=== PATIENT | male | born 1990 | race Caucasian/White ===

== ENCOUNTER 2016-05-30 00:51 | Emergency (ER) | payer BC ==
[2016-05-30 01:05] VITALS: RESP 16; TEMP 97.5
[2016-05-30] MEDS ORDERED: METOCLOPRAMIDE 10 MG/2 ML VIAL ONE (01:42)
[2016-05-30] MEDS ORDERED: KETOROLAC 15 MG/1 ML SDV ONE (01:43)
[2016-05-30] MEDS ORDERED: KETOROLAC 15 MG/1 ML SDV IVP ONE (01:48)
[2016-05-30] MEDS ORDERED: METOCLOPRAMIDE 10 MG/2 ML VIAL IVP ONE (01:48)
--- NOTE | 2016-05-30 02:09 | EDPHY ---
H & P Stated Complaint: migraine over R eye, N/V, x 3 hrs tonight. Tylenol didn't help. Time Seen by Provider: 05/30/16 01:58 HPI/ROS: HPI The patient presents with headache which began about 3 hours ago while watching TV. It started slowly and it was in the right retro-orbital region, he describes it as throbbing. He is had about 2 episodes of vomiting. He took a dose of Tylenol without any improvement of his symptoms. He does have a history of similar headaches which he attributes to migraine. He has had to go to the emergency room previously, his last visit was about 8 months ago. He is not have any numbness or weakness of arms or legs, he does not have any changes to his vision.. REVIEW OF SYSTEMS Constitutional: No fever, no chills. Eyes: No discharge. ENT: No sore throat. Cardiovascular: No chest pain, no palpitations. Respiratory: No cough, no shortness of breath. Gastrointestinal: No abdominal pain, + vomiting. Genitourinary: No hematuria. Musculoskeletal: No back pain. Skin: No rashes. Neurological: + headache. PMHx: Migraine headache, depression Soc Hx: No tobacco use, denies drug use PHYSICAL General Appearance: Alert, no distress Eyes: Pupils equal and round no pallor or injection ENT, Mouth: Mucous membranes moist Respiratory: There are no retractions, lungs are clear to auscultation Cardiovascular: Regular rate and rhythm Gastrointestinal: Abdomen is soft and non-tender, no masses, bowel sounds normal Neurological: A&O, cranial nerves 2-12 intact, 5/5 strength in upper and lower extremities which is symmetric Skin: Warm and dry, no rashes Musculoskeletal: Neck is supple non tender Extremities: symmetrical, full range of motion Psychiatric: Patient is oriented X 3, there is no agitation Source: Patient - Personal History Current Tetanus/Diphtheria Vaccine: Unsure Current Tetanus Diphtheria and Acellular Pertussis (TDAP): Unsure - Medical/Surgical History Hx Asthma: No Hx Chronic Respiratory Disease: No Hx Diabetes: No Hx Cardiac Disease: No Hx Renal Disease: No Hx Cirrhosis: No Hx Alcoholism: No Hx HIV/AIDS: No Hx Splenectomy or Spleen Trauma: No Other PMH: migraines, depression - Social History Smoking Status: Never smoked Constitutional: Initial Vital Signs Temperature (C) 36.4 C 05/30/16 01:02 Heart Rate 69 05/30/16 01:02 Respiratory Rate 16 05/30/16 01:02 Blood Pressure 132/85 H 05/30/16 01:02 O2 Sat (%) 98 05/30/16 01:02 O2 Delivery Mode Room Air Allergies/Adverse Reactions: No Known Allergies Allergy (Unverified 05/30/16 01:02) Home Medications: Medication Instructions Recorded Lexapro 05/30/16 Medical Decision Making Differential Diagnosis: This is a 26-year-old male with history of migraine headaches who presents from home with headache typical of his usual migraine. On exam, he has no neurologic deficits. In the emergency room he was given Toradol, Benadryl, Reglan with significant improvement in his headache. He will be discharged home , I have instructed him that he can take Excedrin migraine as needed. He is in agreement with the plan. Differential diagnosis includes tension type headache, migraine headache, sinusitis. Doubt meningitis given no fever, or nuchal rigidity. Doubt subarachnoid hemorrhage given normal neurologic exam. - Data Points Medications Given: Discontinued Medications Diphenhydramine HCl (Benadryl Injection) 25 mg IVP EDNOW ONE Stop: 05/30/16 01:49 Last Admin: 05/30/16 01:50 Dose: 25 mg Ketorolac Tromethamine (Toradol) 15 mg IVP EDNOW ONE Stop: 05/30/16 01:49 Last Admin: 05/30/16 01:50 Dose: 15 mg Metoclopramide HCl (Reglan Injection) 10 mg IVP EDNOW ONE Stop: 05/30/16 01:49 Last Admin: 05/30/16 01:50 Dose: 10 mg Departure - Departure Disposition: Home, Routine, Self-Care Clinical Impression: Migraine Qualifiers: Migraine type: unspecified Status migrainosus presence: without status migrainosus Intractability: not intractable Qualified Code(s): G43.909 - Migraine, unspecified, not intractable, without status migrainosus Condition: Good Instructions: Migraine Headache (ED) Additional Instructions: Please return to the emergency room if your worse in any way. You can try Excedrin migraine if your headache continues. Referrals: Davion Horvath MD [Primary Care Provider] - As per Instructions
[2016-05-30 02:44] VITALS: BP 139/70; PULSE 66; O2SAT 94
== END 2016-05-30 02:43 | disposition home or self-care (01) ==
DX: G43.909 Migraine, unspecified, not intractable, without status migrainosus (principal)
CPT/HCPCS: 96374; J1200; J1885; J2765